=== PATIENT | female | born 1985 | race Caucasian/White ===

== ENCOUNTER 2024-09-05 14:48 | Outpatient (REF) | payer OTHER, SELFPAY ==
--- OUTSIDE RECORDS SUMMARY | 2024-09-05 14:58 | XMS_ITS | Clinical Summary ---
Author Organization [facility] Address [address] [facility] [address] [place] [id number] Phone Care Team Providers Care Tank Storage Supervisor Name Role Phone Scott Leiva MD Primary Care Provider Allergies No known active allergies Medications Ca-D3-mag mc-zqhb-cow-shilpi -bor (CALCIUM 600-D3 PLUS, MAG-ZINC,) 600 mg calcium- 800 unit-50 mg Tab 07/30/2018 Acti ve multivitamin-FA- dha (ONE-A-DAY VITACRAVES OMEGA-3) 200-16 mcg-mg Chew Take 1 tablet by mouth. Active Family History Medical History Relation Comments No Known Problems Brother 1 No Known Problems Brother 2 No Known Problems Father Diabetes Maternal Grandmother No Known Problems Mother Relation Status Comments Brother 1 Alive Brother 2 Alive Father Alive Maternal Grandfather Maternal Grandmother Alive Mother Alive Paternal Grandfather Paternal Grandmother Social History Tobacco Use Types Packs/Day Years Used Date Smoking Tobacco: Former Smokeless Tobacco: Former Comments:, valorie'ed in 15 Education Answer Date Recorded Are you interested in more education? Not on neva e 06/03/2022 Are you concerned about learning? Not on file 06/03/2022 No 06/03/2022 No 06/03/2022 Digital Access Answer Date Recorded No 07/02/2022 No 07/02/2022 No 07/02/2022 Reliable internet access at home? Not on file 07/02/2022 Device with a working camera? Not on file Comments Unknown Sex and Gender Information Value Date Recorded Sex Assigned at Female 12/04/2019 11:22 AM EDT Legal Sex Female 11:14 AM EDT Gender Identity Female 12/04/2019 11:22 AM EDT Sexual Orientation Straight 12/04/2019 11 :22 AM EDT Last Filed Vital Signs Vital Sign Reading Time Taken Comments Blood Pressure - - Pulse - - Temperature - - Respiratory Rate - - Oxygen Saturation - - Inhaled Oxygen Concentration - - Weight 58.7 kg (129 lb 8 oz) 02/06/2020 2:54 PM EST Height 160 cm (5' 3 ) 02/06/2020 2:54 PM EST Body Mass Index 22.94 02/06/2020 2:54 PM EST Plan of Treatment Health Maintenance Due Date Last Done Comments Adult Td,Tdap Booster 1985 DEPRESSION SCREENING 1997 SMOKING Hx and SMOKELESS TOB ACCO SCREENING 1998 PAP SMEAR 03/06/2022 03/06/2019 COVID-19 VACCINE (2 - 2023-2 5 season) 2023 05/11/2020 HEPATITIS C SCREENING Completed 02/06/2020 HIV ONE-TIME SCREENING (18-6 5 YEARS) Completed 02/06/2020 HEPATITIS A VACCINES Aged Out No long er eligible based on patient's age to complete this topic HIB VACCINES Aged Out No longer eligi ble based on patient's age to complete this topic MENINGOCOCCAL VACCINES (ACWY) Aged Out No longer eligible based on patient's age to complete this topic MENINGOCOCCAL VACCINES (B) Aged Out N o longer eligible based on patient's age to complete this topic PNEUMOCOCCAL VACCINES (0-49 years) Aged Out No longer eligible based on patient's age to complete this topic Medical Devices Not on file Procedures Procedure Name Priority Date/Time Associated Diagnosis Comments HEPATITIS C ANTIBODY, QUALITATIVE Routine 02/06/2020 2:04 PM EST 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 Does not exclude the possibility of exposure to HCV. 02/06/2020 2:04 PM EST 02/06/2020 3:59 PM EST Zakia Maldonado MD LAB BLOOD ORDERABLES Final Res ult [facility] [address] [place] [address] * Pap Smear (03/06/2019) PAP - EXTERNAL NILM us Historical Provider CYTOLOGY ORDERABLES Final Result from Last 3 Months or Most Recently Relevant to Health Maintenance Insurance [place] [address] [place] [facility] [place] [facility] [place] [facility] [place] [address] [place], [place] [address]O Member Subscriber Plan / Payer (Ef fective 2020-Present) Name:Cherri CLEMONS Relation to Subscriber:Self Name:KHADIJAHCherri LENNON Payer ID:[id number] Group ID:[id number] Type:Medicaid Address: [address] [place] Care Teams Tank Storage Supervisor Relationship Specialty Start Date End Date Scott Leiva MD [address] [place] [id number] PCP - General 02/20/20 Additional Source Comments The information contained in this document represents components of the legal health record. It is not the complete legal health record.[facility]
--- OUTSIDE RECORDS SUMMARY | 2024-09-05 14:58 | XMS_ITS | Clinical Summary ---
Author Organization [employer] Address [address] [facility] [address] [place] [address] Care Team Providers Care Theatrical Variety Agent Name Role Phone Unavailable Primary Care Provider Unavailabl e Social History Tobacco Use Types Packs/Day Years Used Date Smoking Tobacco: Never Assessed Comments Unknown Sex and Gender Information Value Date Recorded Sex Assigned at Not on file Legal Sex Female 11:13 AM EST Gender Identity Not on file Sexual Orientation Not on file Plan of Treatment Health Maintenance Due Date Last Done Comments Depression Screening 1985 Disability Screening 1985 Alcohol/Substance Use Screening 1997 Tobacco Screening 1997 Family Planning (PISQ) 2000 HPV Vaccines (1 - 3-dose series) 2000 DTaP/Tdap/Td Vaccines (1 - Tdap) 2004 Hepatitis B Vaccines (1 of 3 - 19+ 3-dose series) 2004 Pap Smear 2006 Cervical Cancer Screening 05/08/2015 HPV/Cotest 05/08/2015 COVID-19 Vaccine ( - 2023-2 5 season) 2023 Influenza Vaccine (#1) 2024 Zoster Vaccines (1 of 2) 05/08/2035 RSV Patients and Pa tients Aged 60 years or older (1 - 1-dose 75+ series) 2060 HIB Vaccines Aged Out No longer eligi ble based on patient's age to complete this topic Hepatitis A Vaccines Aged Out No long er eligible based on patient's age to complete this topic IPV Vaccines Aged Out No longer eligi ble based on patient's age to complete this topic Meningococcal B Vaccine Aged Out No l onger eligible based on patient's age to complete this topic Meningococcal Vaccine Aged Out No alex gabriela eligible based on patient's age to complete this topic Pneumococcal Vaccine: Pediat rics (0 to 5 Years) and At-Risk Patients (6 to 49) Years Aged Out No longer eligible b ased on patient's age to complete this topic RSV under 20 months Aged Out No longe r eligible based on patient's age to complete this topic Rotavirus Vaccines Aged Out No longer eligible based on patient's age to complete this topic
== END 2024-09-05 14:49 | disposition home or self-care (01) ==
LOC: HO.LAB 14:48
PROVIDERS: Visit Provider Obstetrics & Gynecology Reproductive Endocrinology
DX: Z31.7 Encounter for procreative management and counseling for gestational carrier (principal)
CPT/HCPCS: 36415; 84702

== ENCOUNTER 2024-11-06 10:58 | Emergency (ER) | payer OTHER, SELFPAY ==
--- NOTE | ~2024-11-06 | US_ITS ---
EXAMINATION: US PELVIS CLINICAL INFORMATION: Pelvic pain. COMPARISON: None available. TECHNIQUE: Ultrasound of the pelvis is performed using both transabdominal and transvaginal transducers along with Doppler. Transvaginal imaging is performed due to inadequate visualization transabdominally. FINDINGS: Uterus: The uterus is in retroversion flexion position and measures 7 x 4 x 4 cm. The cervix is closed. The double wall endometrial thickness is 3 mm. The uterus is smooth in contour and has normal myometrial echogenicity. No visible fibroid. Adnexa: The ovaries are identified with flow on color Doppler interrogation.. No free fluid in the cul-de-sac. Right ovary measures 3 x 2 x 2 cm. Volume: 7 cc. Scattered follicles. Left ovary measures 3 x 2 x 2 cm. Volume: 8 cc. Scattered follicles. US/US pelvic ovarian doppler IMPRESSION: No ovarian torsion. Uterus is in retroversion flexion position without gross abnormality. Electronically signed by: Imtiaz Ramon MD 11/06/2024 04:00 PM EDT
--- NOTE | ~2024-11-06 | US_ITS ---
EXAMINATION: US PELVIS CLINICAL INFORMATION: Pelvic pain. COMPARISON: None available. TECHNIQUE: Ultrasound of the pelvis is performed using both transabdominal and transvaginal transducers along with Doppler. Transvaginal imaging is performed due to inadequate visualization transabdominally. FINDINGS: Uterus: The uterus is in retroversion flexion position and measures 7 x 4 x 4 cm. The cervix is closed. The double wall endometrial thickness is 3 mm. The uterus is smooth in contour and has normal myometrial echogenicity. No visible fibroid. Adnexa: The ovaries are identified with flow on color Doppler interrogation.. No free fluid in the cul-de-sac. Right ovary measures 3 x 2 x 2 cm. Volume: 7 cc. Scattered follicles. Left ovary measures 3 x 2 x 2 cm. Volume: 8 cc. Scattered follicles. US/US pelvic and transvaginal IMPRESSION: No ovarian torsion. Uterus is in retroversion flexion position without gross abnormality. Electronically signed by: Imtiaz Ramon MD 11/06/2024 04:00 PM EDT
[2024-11-06 11:26] VITALS: BP 141/64; PULSE 82; RESP 16; TEMP 36.8; O2SAT 98; BMI 27.8
--- NOTE | 2024-11-06 11:29 | ED_ITS ---
HPI - Female Genitourinary General Chief complaint: Vaginal Bleeding Stated complaint: Vaginal bleeding, headache Time Seen by Provider: 11/06/24 16:13 Source: patient Mode of arrival: ambulatory Limitations: no limitations History of Present Illness ED Provider: Dr. Diaz [facility] Narrative: This is a 39-year-old female presented hospital today for evaluation of abnormal vaginal bleeding and headache. Patient has described his headache as a bilateral parietal headache that radiates to her eyes bilaterally. The patient states she feels nauseous. She is not feeling well. Patient stated that she has been having clot passing from her vagina. She had her period 5 days ago. This is abnormal for her. She normally has regular. Without any issues. She does have history of tubal ligation in the past not currently on any control. Denies any sore throat nasal congestion or fever or recent illness. Related Data Allergies Allergy/AdvReac Type Severity Reaction Status Date / Time No Known Allergies Allergy Verified 11/06/24 11:27 Review of Systems 2 Review of Systems: Pertinent review of systems as mentioned in HPI. All other system otherwise negative. [facility] Past Medical History [facility] Narrative: Medical history as mentioned in [facility] Social History Social History Advance Directives: No Advance Directives Information Provided: Yes Do you have a plan to hurt others: No Plan Physical Exam 2 Exam: Exam: General: Pleasant, no distress, interacting appropriately Head: Normacephalic, atraumatic ENT: oral mucosa moist, neck supple, no tracheal deviation Cardiovascular: Tachycardic rate, regular rhythm, no murmurs, rubbing, gallops Respiratory: CTAB, no wheeze, rales, rhonchi Gastrointestinal: Soft, non distended, non tender, non guarding Neurological: Awake and alert, no facial droop noted, no focal neurological deficit Skin: Warm and dry Psychiatric: Appropriate mood and thoughts Vital Signs: Vital Signs: Last Vital Signs Temp 98 F 11/06/24 15:59 Pulse 75 11/06/24 15:59 Resp 18 11/06/24 15:59 BP 113/66 11/06/24 15:59 Pulse Ox 99 11/06/24 15:59 O2 Del Method Room Air 11/06/24 15:59 BMI result Body Mass Index 27.8 Course Course Course Narrative: This is an RME: Additional HPI, ROS, PE not included below will be deferred to primary provider. RME assessment and note performed by: Ophelia Jackson PA-C This is a 39-year-old female who presents emergency department with complaints of headache, nausea, lightheadedness, and heavy menses. She states that she has had menses every other week for the last 2 months. She is unable to see an OBGYN as she recently relocated to the area and all OBGYN office his require a referral from her previous OBs office. Plan: Labs, further ER eval needed Medical Decision Making Medical Decision Making MDM Narrative: This is a 39-year-old female presented hospital today for evaluation of abnormal uterine bleed and headache. Patient states she does have history of migraine. This does feel like her migraine. Patient's hemoglobin level was 11.6. No sign of significant anemia. Patient chemistries unremarkable.. HCG is negative. We will plan to treat patient's migraine with IV fluid, Tylenol, Reglan, magnesium. Patient's ultrasound was normal. No sign of torsion no sign abnormality and uterus. We will plan to reassess patient after medication. I do not think patient has significant bleeding that is causing severe anemia. We will plan to give patient does IV TXA. Notified by nursing staff that patient has left without completing treatment. Differential Diagnosis Differential Diagnoses: The differential diagnosis associated with the presentation includes Uterine bleeding, fibroids, symptomatic anemia, headache, cluster headache, migraine Lab Data MDM Lab Attestation statement: I reviewed the patient's lab results. 11/06/24 12:34 11/06/24 12:34 Labs: Lab Results 11/06/24 Range/Units 12:34 WBC 5.6 (4.8-10.8) X10*3/uL RBC 3.81 L (4.20-5.50) X10*6/uL Hgb 11.6 L (12.0-16.0) g/dl Hct 35.5 L (37.0-47.0) % MCV 93.2 (80.0-98.0) fL MCH 30.4 (27.0-33.0) pg MCHC 32.7 (31.0-35.0) g/dl RDW 12.8 (11.0-16.0) % Plt Count 237 (160-400) X10*3/uL MPV 10.4 (9.4-12.3) fL Immature Gran % (Auto) 0.2 (0.0-0.4) % Neut % (Auto) 58.0 (45-73) % Lymph % (Auto) 34.9 (20-40) % [place] % (Auto) 5.1 (2-11) % Eos % (Auto) 1.6 (0-4) % Baso % (Auto) 0.2 (0-2) % Lymph # (Auto) 2.0 (1.2-4.9) X10*3/uL [place] # (Auto) 0.3 (0.1-1.2) X10*3/uL Eos # (Auto) 0.1 (0.0-0.4) X10*3/uL Baso # (Auto) 0.0 (0.0-0.2) X10*3/uL Abs Immat Gran (auto) 0.01 (0.00-0.03) X10*3/uL Absolute Neuts (auto) 3.3 (2.0-8.3) x10*3/uL Absolute Nucleated RBC 0.000 (0.0-0.012) X10*3/uL Nucleated RBC % (auto) 0.0 (0.0-0.2) /100WBC Sodium 143 (135-145) mmol/L Potassium 4.0 (3.3-5.1) mmol/L Chloride 108 (96-108) mmol/L Carbon Dioxide 28 (22-29) mmol/L Anion Gap 11 L (12-20) BUN 16 (9-16) mg/dL Creatinine 0.68 (0.5-1.4) mg/dL Estim Creat Clear Calc 109.0 Estimated GFR > 60 Random Glucose 110 (60-115) mg/dL Calcium 9.5 (8.4-10.2) mg/dL Magnesium 2.1 (1.6-2.6) mg/dL Total Bilirubin 0.2 (0.0-1.0) mg/dL Direct Bilirubin < 0.2 (0.0-0.5) mg/dL AST 27 (5-31) U/L ALT 30 (0-31) U/L Alkaline Phosphatase 100 (39-117) U/L Total Protein 7.5 (6.5-8.0) g/dL Albumin 4.5 (3.5-5.0) g/dL Beta HCG, Quant < 2 mIU/mL Independent Interpretation I performed an independent interpretation of an: Ultrasound Radiology Impression Discussion of test interpretation with radiology: I have reviewed the radiologist's reading. Discharge Plan Discharge Clinical Impression: Vaginal bleeding, Migraine Patient Disposition: Left W/O Completing Treatment Discharge Date/Time: 11/06/24 18:02
[2024-11-06 12:37] LABS: MANUAL DIFF FLAG NO
[2024-11-06 12:39] LABS: Hematocrit 35.5 % (37.0-47.0); Hemoglobin 11.6 g/dl (12.0-16.0); Imm Gran Abs Auto 0.01 X10*3/uL (0.00-0.03); Imm Gran Pct Auto 0.2 % (0.0-0.4); Lymphocytes Absolute Auto 2.0 X10*3/uL (1.2-4.9); Mean Corpuscular HGB Conc 32.7 g/dl (31.0-35.0); Mean Corpuscular Hemoglobin 30.4 pg (27.0-33.0); Mean Corpuscular Volume 93.2 fL (80.0-98.0); NRBC Abs Auto 0.000 X10*3/uL (0.0-0.012); NRBC Pct Auto 0.0 /100WBC (0.0-0.2); Platelet Count 237 X10*3/uL (160-400); Red Blood Count 3.81 X10*6/uL (4.20-5.50); White Blood Count 5.6 X10*3/uL (4.8-10.8)
[2024-11-06 13:14] LABS: Alanine Aminotransferase 30 U/L (0-31); Albumin Level 4.5 g/dL (3.5-5.0); Alkaline Phosphatase 100 U/L (39-117); Anion Gap 11 (12-20); Aspartate Amino Transferase 27 U/L (5-31); Blood Urea Nitrogen 16 mg/dL (9-16); Calcium 9.5 mg/dL (8.4-10.2); Carbon Dioxide 28 mmol/L (22-29); Chloride 108 mmol/L (96-108); Creatinine Clr Calc Pharmacy 109.0; Estimated Glomerular Filt Rate > 60; Magnesium 2.1 mg/dL (1.6-2.6); Potassium 4.0 mmol/L (3.3-5.1); Sodium 143 mmol/L (135-145); Total Protein 7.5 g/dL (6.5-8.0)
[2024-11-06 15:59] VITALS: BP 113/66; PULSE 75; RESP 18; TEMP 36.6; O2SAT 99
--- OUTSIDE RECORDS SUMMARY | 2024-11-06 16:42 | XMS_ITS | Clinical Summary ---
Author Organization [facility] Address [address] [facility] [address] [place] [phone] Phone Care Team Providers Care Semiconductor Technician Name Role Phone Scott Leiva MD Primary Care Provider [phone] Allergies No known active allergies Medications Ca-D3-mag wb-hkrf-xwi-shilpi -bor (CALCIUM 600-D3 PLUS, MAG-ZINC,) 600 mg [...] DEPRESSION SCREENING 1997 SMOKING Hx and SMOKELESS TOBACCO SCREENING 1998 PAP SMEAR 03/06/2022 03/06/2019 INFLUENZA VACCINE (#1) 2024 0, 12/27/2018, 10/11/2017 COVID-19 VACCINE (2 - 2024-2 6 season) 2024 05/11/2020 HEPATITIS C SCREENING Completed 02/06/2020 HIV [...] (0-49 years) Aged Out No longer eligible b ased [...] 2:04 PM EST) HCV ANTIBODY Negative Negative [facility] Comment:Antibodies to HCV no t detected. Does not exclude the possibility of exposure to HCV. 02/06/2020 2:04 PM EST 02/06/2020 3:59 PM EST us Zakia Maldonado MD LAB BLOOD ORDERABLES Final Res ult [facility] [address] [place] [address] * Pap Smear (03/06/2019) PAP - EXTERNAL NILM us Historical Provider CYTOLOGY ORDERABLES Final Result from Last 3 Months or Most Recently Relevant to Health Maintenance Insurance [address] [place], [place] [address] [place] [facility] [place] [address] [place] [facility] [place] [facility] [place] [address] [place] Care Teams Semiconductor Technician Relationship Specialty Start Date End Date Scott Leiva MD [address] [place] [address] PCP - General 02/20/20 Additional Source Comments The information contained in this document represents components of the legal health record. It is not the complete legal health record.[facility]
--- OUTSIDE RECORDS SUMMARY | 2024-11-06 16:42 | XMS_ITS | Clinical Summary ---
Author Organization [employer] Address [address] [facility] [address] [place] [address] Care Team Providers Care Sole Conforming Machine Operator Name Role Phone Unavailable Primary Care Provider [...] Cancer Screening 05/08/2015 HPV/Cotest 05/08/2015 COVID-19 Vaccine (1 - 2023-2 5 season) 2024 Influenza Vaccine (#1) 2024 Zoster Vaccines (1 [...]
--- NOTE | 2024-11-06 17:58 | PC.NURSE ---
When to pts exam room to medicated, pt was no where to be found. Called pt on cell number, but no answer. Provider made aware pt did not get medications.
== END 2024-11-06 18:02 | disposition left against medical advice (07) ==
LOC: HO.ED 16:36
PROVIDERS: Physician Assistant Medical; Emergency Provider Student in an Organized Health Care Education/Training Program
DX: G43.909 Migraine, unspecified, not intractable, without status migrainosus (principal); R10.20 Pelvic and perineal pain unspecified side; N93.8 Other specified abnormal uterine and vaginal bleeding
CPT/HCPCS: 36415; 76830; 76856; 80048; 80076; 83735; 84702; 85025; 93975; 99283; 99284

== ENCOUNTER → 2024-11-06 13:37 | Outpatient (BNV) | payer OTHER, SELFPAY | PROVIDERS: Emergency Provider Student in an Organized Health Care Education/Training Program; Visit Provider Radiology Diagnostic Radiology | DX: R10.20 Pelvic and perineal pain unspecified side (principal); N93.9 Abnormal uterine and vaginal bleeding, unspecified | CPT/HCPCS: 76830; 76856; 93975 ==